=== PATIENT | female | born 1985 | race Caucasian/White ===

== ENCOUNTER 2018-04-15 05:08 | Inpatient (IN) | payer BC ==
[2018-04-15] MEDS ORDERED: Citric Acid/Sodium Citrate Solution 30 ML Cup ONE (05:36)
[2018-04-15] MEDS ORDERED: Metoclopramide 10 MG/2 ML SDV ONE (05:36)
[2018-04-15] MEDS ORDERED: Lactated Ringers 1,000 ML ONE (05:36)
[2018-04-15] MEDS ORDERED: Metoclopramide 10 MG/2 ML SDV IVPUSH ONE (05:37)
[2018-04-15] MEDS ORDERED: Sodium Chloride 0.9% 10 ML Syringe FLUSH PRN (05:37)
[2018-04-15] MEDS ORDERED: Citric Acid/Sodium Citrate Solution 30 ML Cup PO ONE (05:37)
[2018-04-15] MEDS ORDERED: ceFAZolin 2 GM in Premix Bag 1 BAG IV ONE (05:37)
[2018-04-15] MEDS ORDERED: Lactated Ringers 1,000 ML IV SCH (05:45)
[2018-04-15] MEDS ORDERED: Bupivacaine 0.75%/D5W 2 ML Amp ONE (05:55)
[2018-04-15] MEDS ORDERED: Ondansetron 4 MG/2 ML SDV ONE (05:55)
[2018-04-15] MEDS ORDERED: Oxytocin 10 Units/1 ML SDV ONE (05:55)
--- NOTE | 2018-04-15 05:55 | PCM.LDHP ---
L&D History of Present Illness - General Date of Service: 04/15/18 Admit Problem/Dx: Patient Status Order with Admit Dx/Problem 04/15/18 05:37 Patient Status [ADT] Routine Admission Diagnosis/Problem Admission Diagnosis/Problem complications Source of Information: Patient History Limitations: Reports: No Limitations - History of Present Illness Introduction:: Admission history and physical: Sulema is a 32-year-old 3 para 0111 white female was admitted on the a.m. of 04/15/2018 with reported rupture membranes. This occurred approximately 0400 hrs. She's had continued mild leakage since that time with some green staining on her pad. Valuation in labor delivery shows baby to be in a breech presentation by ultrasound and clinical exam. It appears to be kim breech. Membranes appear to be ruptured, amnio sure is done but there is no evidence of membranes and patient is 5 cm, 95% effaced, -2 station, very soft and anterior. Discussion is held with patient as to attempt at vaginal after section versus repeat section. The benefits risks and alternatives of care discussed in detail. She appears to understand and wishes to proceed with section. [employer] history 3 para 0111 with last baby delivery at 27 weeks gestational age after rupture membranes. He is also had a miscarriage on 2014 at 8 weeks gestational age. Her present is dated by a certain last menstrual periods started on 07/28/2017 is supported by an ultrasound done on 10/10/2017 and 09/12/2017. He is 05/04/[address] place her at 37-2/7 weeks gestational age. Her has been relatively unremarkable. She is a centering patient. She declines flu vaccination. She declined the T dap immunization. Her [place] depression screening score on was 0 on a scale of 30. She is group B strep negative. She declined genetic evaluation. She is Rh- with O- blood. She did have RhoGAM at 28 weeks been administered on 10/14/2017. Betamethasone after 24 weeks 2 doses. Previous C- section was confirmed via low transverse incision. He plans to breast-feed. Her first visit was at 10-4/7 weeks gestational age. At that time weight was 153. Went up to 191 for a 4038 pound weight gain. Her vital signs remained stable throughout os to the course but increased to borderline elevated towards in the . Fundal height growth has been appropriate. Baby was felt to be breech at her last visit. Patient had menarche at age 13. Cycles every 28 days and regular. Her definite last menstrual period started on 07/28/2017 and patient was not using any control to time conception. Laboratory testing in : Blood is O- with negative MRI screening. First labs showed hemoglobin 14.5 g/dL and platelets 200,000. She is rubella immune. RPR was nonreactive. Hepatitis B surface antigen and HIV assays were both negative. Chlamydia and gonorrhea assays were negative. Second trimester labs showed a hemoglobin of 12.7 and platelets of 163,000. Her 1 hour GTT was elevated at 161. Three-hour glucose tolerance test showed a fasting blood sugar of 83, 1 hour blood sugar of 160, 2 hour blood sugar of 203, three-hour blood sugar of 141. She was determined to not be a gestational diabetic. Antibody screen was positive on 02/06/2018 and was felt to be due to the previous give RhoGAM. Her group B strep screen is negative. Allergies: None Medications: 1. vitamins daily 2. Folic acid 1 mg orally daily Past medical history: 1. Miscarriage past surgical history: 2016 for labor at 27 weeks 2. Ear tubes as a child. Family history: Mother and father are alive and well. On brother and 1 sister alive and well. All grandparents are . Paternal grandfather secondary to Guillain-Nieves disease. Maternal grandmother secondary to breast cancer, Luke's disease. Paternal grandfather from some type of metabolic problem. Paternal grandmother secondary lung cancer. There are no bleeding, clotting, anesthesia or -related problems noted in the family otherwise. Social history: Patient is . She lives in [place] with her Dejuan. She does not use any significant most alcohol, drugs or tobacco. Review of systems: Baby has been active. Some contractions are noted. An: Negative Cardiovascular: No chest pain or exercise intolerance Respiratory: No infectious symptoms or shortness of breath Breasts: Changes associated with . Patient does plan to breast-feed. GI: Negative : Changes and cervix as above. Findings consistent with spontaneous rupture membranes, breech presentation in a 37-2/7 week Musculoskeletal: Negative Neurological: Negative Physical exam: In general patient is well-developed well-nourished pleasant female stated age in no acute distress. Blood pressure on last evaluation clinic was 136/92. Weight was 191. heart rate is 153. Her pregravid weight was 153. Pregravid body mass index is 24.7 and height is 5 feet 6 inches. In general patient is well-developed, well-nourished, pleasant female stated age in no acute distress. Skin is warm dry without lesions. HEENT, neck and back within normal limits Lungs are clear with good breath sounds in all lung perez. Cardiovascular exam shows regular rate and rhythm without murmurs. Breast exam is deferred having been done first visit found to be normal. Abdomen is protuberant with this with last fundal height in clinic at 37 cm. Baby is felt to be in a breech presentation last clinic evaluation. Cervix as described above Extremities show no significant edema. Neurological exam grossly within normal limits. - Related Data Allergies/Adverse Reactions: Allergies Allergy/AdvReac Type Severity Reaction Status Date / Time No Known Allergies Allergy Verified 05/29/15 15:27 Home Medications: Home Meds Folic Acid 800 mg PO DAILY 05/29/15 [History] Acetaminophen/oxyCODONE [Percocet 325-5 MG] 2 tab PO Q4H PRN #30 tablet [Rx] Ibuprofen [Motrin] 600 mg PO Q4H PRN #30 tablet 01/04/16 [Rx] Vit W-Ca,Fe,FA(<1 mg) [ Vitamins] 1 each PO DAILY #100 tablet 01/04/16 [Rx] Past Medical History [employer] History: Reports: , Spontaneous H&P Review of Systems - Review of Systems: Review Of Systems: See Below L&D Exam - Exam Exam: See Below Problem List Initiated/Reviewed/Updated: Yes Orders Last 24hrs: Active Orders 24 hr Category Date Time Status Patient Status [ADT] Routine ADT 04/15/18 05:37 Ordered Communication Order [RC] ROUTINE Care 04/15/18 05:37 Ordered Heart Tones [RC] PER UNIT ROUTINE Care 04/15/18 05:37 Ordered Non Stress Test [RC] PER UNIT ROUTINE Care 04/15/18 05:37 Ordered Peripheral IV Care [RC] . DIRECTED Care 04/15/18 05:39 Ordered Procedure Site Prep Instruct [RC] ASDIRECTED Care 04/15/18 05:37 Ordered Verify Patient Consent Obtain [RC] PER UNIT ROUTINE Care 04/15/18 05:37 Ordered Vital Signs [RC] PFP Care 04/15/18 05:37 Ordered Nothing Per Oral Diet [DIET] Diet 04/15/18 Breakfast Ordered CBC W/O DIFF,HEMOGRAM [HEME] Stat Lab 04/15/18 05:37 Ordered RAPID PLASMA REAGIN,RPR [CHEM] Stat Lab 04/15/18 05:37 Ordered TYPE AND SCREEN [BBK] Routine Lab 04/15/18 05:37 Ordered Citric Acid/Sodium Citrate [Bicitra Solution] Med 04/15/18 05:37 Once 30 ml PO ONETIME ONE Lactated Ringers @ 125 MLS/HR(1000ml) Med 04/15/18 05:45 Ordered Lactated Ringers [Ringers, Lactated] 1,000 ml IV ASDIRECTED Metoclopramide [Reglan] Med 04/15/18 05:37 Once 10 mg IVPUSH ONETIME ONE Sodium Chloride 0.9% [Saline Flush] Med 04/15/18 05:37 Ordered 10 ml FLUSH ASDIRECTED PRN ceFAZolin [Ancef] 2 gm Med 04/15/18 05:37 Ordered Premix Bag 1 bag IV ONETIME Peripheral IV Insertion Adult [OM.PC] Routine Oth 04/15/18 05:37 Ordered Schedule Procedure [COMM] Per Unit Routine Oth 04/15/18 05:37 Ordered Resuscitation Status Routine Resus Stat 04/15/18 05:37 Ordered Assessment/Plan Comment:: 1. 37-2/7 week intrauterine , spontaneous rupture membranes, kim breech presentation, active labor, advanced cervical dilation of 5 cm, history of previous section with desire for trial labor after section for vaginal after section. 2.Reassuring heart tones. 3. Rubella immune 4. Group B strep screen negative 5. Patient plans to breast-feed. Plan: 1. Repeat lower uterine segment transverse section through Dre skin incision under spinal block. Procedure, risks, benefits, alternatives of care including attempt at vaginal breech delivery all discussed with patient. She appears understand and wishes to proceed with . Consent is signed. 2. DVT prophylaxis with SCDs 3. Ancef 2 g IV preop for infection prophylaxis 4. CBC and type and screen preoperatively 5. Reglan and Bicitra preoperatively per protocol
[2018-04-15] MEDS ORDERED: ceFAZolin 1 GM Vial ONE (05:57)
[2018-04-15] MEDS ORDERED: Morphine PF 10 MG/10 ML SDV ONE (05:59)
[2018-04-15] MEDS ORDERED: Bupivacaine 0.5% 30 ML SDV ONE (06:06)
--- NOTE | 2018-04-15 06:18 | PCM.PREANE ---
Preanesthetic Assessment - Procedure Proposed Procedure: Urgent C Section - Anesthesia/Transfusion/Family Hx Anesthesia History: Prior Anesthesia Without Reaction Family History of Anesthesia Reaction: No Transfusion History: No Prior Transfusion(s) - Review of Systems General: No Symptoms Pulmonary: No Symptoms Cardiovascular: No Symptoms Gastrointestinal: No Symptoms Neurological: No Symptoms Other: Reports: None - Physical Assessment NPO Status Date: 04/14/18 NPO Status Time: 22:30 Pulse: 92 O2 Sat by Pulse Oximetry: 100 Respiratory Rate: 20 Blood Pressure: 130/90 Temperature: 37.2 C Weight: 86.636 kg ASA Class: 2E Mental Status: Alert & Oriented x3 Airway Class: Mallampati = 1 Dentition: Reports: Normal Dentition Thyro-Mental Finger Breadths: 3 Mouth Opening Finger Breadths: 3 ROM/Head Extension: Full Lungs: Clear to Auscultation, Normal Respiratory Effort Cardiovascular: Regular Rate, Regular Rhythm - Allergies Allergies/Adverse Reactions: Allergies Allergy/AdvReac Type Severity Reaction Status Date / Time No Known Allergies Allergy Verified 05/29/15 15:27 - Blood Blood Available: No Product(s) Available: None - Anesthesia Plan Pre-Op Medication Ordered: None - Acknowledgements Anesthesia Type Planned: Spinal Pt an Appropriate Candidate for the Planned Anesthesia: Yes Alternatives and Risks of Anesthesia Discussed w Pt/Guardian: Yes Pt/Guardian Understands and Agrees with Anesthesia Plan: Yes PreAnesthesia Questionnaire SECY History: Reports: , Spontaneous - HOME MEDS Home Medications: Home Meds Folic Acid 800 mg PO DAILY 05/29/15 [History] Acetaminophen/oxyCODONE [Percocet 325-5 MG] 2 tab PO Q4H PRN #30 tablet [Rx] Ibuprofen [Motrin] 600 mg PO Q4H PRN #30 tablet 01/04/16 [Rx] Vit W-Ca,Fe,FA(<1 mg) [ Vitamins] 1 each PO DAILY #100 tablet 01/04/16 [Rx] - CURRENT (IN HOUSE) MEDS Current Meds: Current Medications Lactated Ringer's (Ringers, Lactated) 1,000 mls @ 125 mls/hr IV ASDIRECTED JAVY Last Admin: 04/15/18 05:45 Dose: 125 mls/hr Sodium Chloride (Saline Flush) 10 ml FLUSH ASDIRECTED PRN PRN Reason: Keep Vein Open Discontinued Medications Bupivacaine HCl (Marcaine 0.5%) Confirm Administered Dose 30 ml .ROUTE .STK-MED ONE Stop: 04/15/18 06:07 Bupivacaine HCl/Dextrose (Marcaine 0.75% Spinal) Confirm Administered Dose 2 ml .ROUTE .STK-MED ONE Stop: 04/15/18 05:56 Cefazolin Sodium (Ancef) Confirm Administered Dose 2 gm .ROUTE .STK-MED ONE Stop: 04/15/18 05:58 Citric Acid/Sodium Citrate (Bicitra Solution) Confirm Administered Dose 30 ml .ROUTE .STK-MED ONE Stop: 04/15/18 05:37 Citric Acid/Sodium Citrate (Bicitra Solution) 30 ml PO ONETIME ONE Stop: 04/15/18 05:38 Lactated Ringer's (Ringers, Lactated) Confirm Administered Dose 1,000 mls @ as directed .ROUTE .STK-MED ONE Stop: 04/15/18 05:37 Cefazolin Sodium/Dextrose 2 gm (/ Premix) 50 mls @ 100 mls/hr IV ONETIME ONE Stop: 04/15/18 06:06 Metoclopramide HCl (Reglan) Confirm Administered Dose 10 mg .ROUTE .STK-MED ONE Stop: 04/15/18 05:37 Metoclopramide HCl (Reglan) 10 mg IVPUSH ONETIME ONE Stop: 04/15/18 05:38 Morphine Sulfate (Duramorph Pf) Confirm Administered Dose 10 mg .ROUTE .STK-MED ONE Stop: 04/15/18 06:00 Ondansetron HCl (Zofran) Confirm Administered Dose 4 mg .ROUTE .STK-MED ONE Stop: 04/15/18 05:56 Oxytocin (Pitocin) Confirm Administered Dose 20 unit .ROUTE .STK-MED ONE Stop: 04/15/18 05:56
[2018-04-15] MEDS ORDERED: Meperidine PF 50 MG/ML Syringe ONE (06:58)
[2018-04-15] MEDS ORDERED: Ketorolac 30 MG/ML SDV ONE (07:09)
--- NOTE | 2018-04-15 07:29 | PCM.POSTAN ---
POST ANESTHESIA ASSESSMENT - MENTAL STATUS Mental Status: Alert, Oriented - VITAL SIGNS Pulse Rate: 71 SaO2: 97 Resp Rate: 9 Blood Pressure: 95/57 Temperature: 37.0 C - RESPIRATORY Respiratory Status: Respiratory Rate WNL, Airway Patent, O2 Saturation Stable, Supplemental Oxygen - CARDIOVASCULAR CV Status: Pulse Rate WNL, Blood Pressure Stable - GASTROINTESTINAL GI Status: No Symptoms - PAIN Pain Score: 0 - POST OP HYDRATION Hydration Status: Adequate & Stable
[2018-04-15] MEDS ORDERED: fentaNYL 100 MCG/2 ML SDV IVPUSH PRN (07:30)
[2018-04-15] MEDS ORDERED: diphenhydrAMINE 50 MG/ML SDV IVPUSH PRN ×2 (07:30→09:30)
[2018-04-15] MEDS ORDERED: Ondansetron 4 MG/2 ML SDV IVPUSH PRN (07:30)
[2018-04-15] MEDS ORDERED: Meperidine PF 50 MG/ML Syringe IVPUSH PRN (07:30)
--- NOTE | 2018-04-15 07:32 | PCM.OPNOTE ---
- General Post-Op/Procedure Note Date of Surgery/Procedure: 04/15/18 Operative Procedure(s): Repeat lower uterine segment transverse section through Pfannenstiel skin incision Findings: Uterus tubes and ovaries were consistent with term . Small fibroids present on the anterior surface of the uterus. All organs within normal limits. Baby is in a kim breech presentation with sacrum posterior. The amniotic fluid was clear but there was some terminal meconium. Cervix is found to be consistent with 5-6 cm dilation. Moderate amount scarring present in the abdominal wall. Baby was female, weighed 7 pounds 7 ounces, was born at 0654 hrs. on 04/15/2018 and had Apgars of 9 and 10. Pre Op Diagnosis: 37-2/7 week intrauterine , spontaneous rupture membranes, kim breech presentation, active labor, advanced cervical dilation of 5 cm, history of previous section. Post-Op Diagnosis: Same with delivery of a 7 lbs. 7 oz. female with Apgars 9 and 10 at 0654 hrs. on 04/15/2018 Anesthesia Technique: Spinal Other Anesthesia Type: Marcaine 0.5%20 mL local Primary Surgeon: Tony Tate Secondary Surgeon: Dg Pa Anesthesia Provider: Jam Smith Product Delivery Specialist: Dori Piña Reason Product Delivery Specialist Was Necessary: Retraction, assistance, patient safety, quality of care Role of Product Delivery Specialist: Retraction, assistance. Fluid Replacement, Intraop: 1,000 Output, Urine Amount: 600 EBL in mLs: 250 Drain/Tube Comments:: Indwelling bladder catheter Complications: None Condition: Good Free Text/Narrative:: Surgery duration: 27 minutes Surgery duration: Procedure: The patient is appropriately consented. Patient was transferred to the room and placed in a sitting position. Spinal anesthesia was administered. After confirmation of adequate anesthesia patient was placed in a supine position with a wedge under her right side to facilitate left lateral positioning. The patient was prepped and draped in usual fashion after Guajardo catheter was already placed . The anesthetic was checked and found to be adequate. 20 mL of Marcaine 0.5% was injected locally in the Pfannenstiel incision site. The Pfannenstiel skin incision was then made and the old scar was effectively removed. It was carried down through skin, subcutaneous and fascial layers. The fascia was then undermined superiorly and inferiorly to allow for adequate operating room. The recti muscles midline and preperitoneal fat was bluntly dissected. Peritoneal cavity was entered longitudinally. The vesicouterine peritoneum was then incised transversely and bladder flap was developed. Myometrium was incised transversely to the level of the amniotic sac. This incision was extended bilaterally in a blunt fashion. The amniotic sac was then ruptured resulting in clear amniotic fluid. A hand is placed in the low uterine segment and the baby's breech was brought forth through the incision. The baby was completely delivered using fundal pressure and complete breech extraction technique in a routine fashion. The nose and mouth were bulb suctioned. Baby's cord was clamped x2 cut and baby was handed off to attending battery hand Dr Lanza. Placenta was expressed after cord blood was obtained. Uterus was then exteriorized to allow for easier closure. The cervix was assessed and found to be dilated adequately to allow egress of blood. The uterus was closed in 2 layers. The first layer a running locked suture of 0 Monocryl, the second layer a running locked vertical mattress suture of 0 Monocryl. Hemostasis confirmed at this time. Sponge instrument needle counts are correct. The uterus was returned to the abdominal cavity and lateral gutters were cleared of blood. Once again sponge needle counts are correct. The anterior abdominal wall was closed with a #1 PDS suture from angle to angle. The subcutaneous area was found to be free of any bleeders. 3 interrupted sutures of 3-0 Monocryl were used to reapproximate the subcutaneous layer.Skin was closed with a running subcuticular stitch of 3-0 Monocryl in a vertical mattress suture fashion using a Garrick needle. Prineo mesh/glue was then applied to further approximate the incision. It should be noted that patient received 2 g of Ancef preoperatively for infection prophylaxis and had Pitocin infused after delivery of the placenta to facilitate uterine contraction. She also had sequential compression stockings in place for DVT prophylaxis. Patient was discharged from the operating room in satisfactory condition.
[2018-04-15] MEDS ORDERED: Acetaminophen/oxyCODONE 325-5 MG Tab PO PRN (09:30)
[2018-04-15] MEDS ORDERED: Ibuprofen 800 MG Tab PO SCH (09:30)
[2018-04-15] MEDS ORDERED: Dextrose 5%-Lactated Ringers 1,000 ML IV SCH (09:30)
[2018-04-15] MEDS ORDERED: Ondansetron 4 MG/2 ML SDV IV PRN (09:30)
[2018-04-15] MEDS ORDERED: Lanolin 100% Cream 7 GM Tube TOP PRN (09:30)
[2018-04-15] MEDS ORDERED: ePHEDrine 50 MG/ML SDV IVPUSH PRN (09:30)
[2018-04-15] MEDS ORDERED: Docusate Sodium 100 MG Cap PO PRN (09:30)
[2018-04-15] MEDS ORDERED: Naloxone 0.4 MG/ML SDV IVPUSH PRN (09:30)
[2018-04-15] MEDS: Simethicone 80 MG Tab.Chew PO SCH ×4 (14:44→21:49)
[2018-04-15] MEDS: Ibuprofen 800 MG Tab PO SCH ×2 (14:44→21:48)
[2018-04-15] MEDS: Prenatal Multivitamin with Calcium/Folic Acid/Iron Tab PO SCH (18:23)
[2018-04-16] MEDS: Ibuprofen 800 MG Tab PO SCH ×3 (05:21→23:26)
--- NOTE | 2018-04-16 07:39 | PCM48HPAN ---
Post Anesthesia Note - EVALUATION WITHIN 48HRS OF ANESTHETIC Vital Signs in Normal Range: Yes Patient Participated in Evaluation: Yes Respiratory Function Stable: Yes Airway Patent: Yes Cardiovascular Function Stable: Yes Hydration Status Stable: Yes Pain Control Satisfactory: Yes Nausea and Vomiting Control Satisfactory: Yes Mental Status Recovered: Yes Pulse Rate: 75 Resp Rate: 16 Temperature: 36.6 C Blood Pressure: 107/63 - COMMENTS/OBSERVATIONS Free Text/Narrative:: no anesthesia complications noted
--- NOTE | 2018-04-16 09:12 | PCM.SN ---
- Free Text/Narrative Note: note: Patient is doing well in the period. Minimal lochia, voiding well, ambulated without problems. Nursing without concerns. Patient is afebrile, vital signs are stable Lungs are clear with good breath sounds in all lung perez. Cardiovascular exam shows regular and rhythm Abdomen is flat, soft, uterus is below the umbilicus and is firm and nontender. Incision is dry, intact and without evidence of hematoma, seroma or infection. Prineo Mesh is in place Legs are nontender. Hemoglobin and platelets are normal for the period Assessment: -first post day, recovery going well. Nursing going well. Plan: Routine postop care. Patient be discharged home within the next 24-48 hours.
[2018-04-16] MEDS: Prenatal Multivitamin with Calcium/Folic Acid/Iron Tab PO SCH (10:00)
[2018-04-16] MEDS: Simethicone 80 MG Tab.Chew PO SCH ×4 (15:00→23:25)
[2018-04-17] MEDS: Ibuprofen 800 MG Tab PO SCH (06:59)
[2018-04-17] MEDS ORDERED: Ibuprofen 800 MG Tab PO SCH (08:00)
[2018-04-17] MEDS: Simethicone 80 MG Tab.Chew PO SCH (08:20)
[2018-04-17] MEDS: Prenatal Multivitamin with Calcium/Folic Acid/Iron Tab PO SCH (08:20)
[2018-04-17 11:12] VITALS: BP 127/89
--- NOTE | 2018-04-17 11:17 | PCM.DCSUM1 ---
Discharge Summary - Hospital Course Free Text/Narrative:: Sulema is a 32-year-old 2 now para [birth year] white female was admitted in active labor admitted at 37-2/7 weeks gestational age having an JASMYNE of 2017. with advanced cervical dilation and a kim breech presentation. He was taken to surgery shortly after admission. She underwent a repeat section. Surgery consisted of a repeat lower uterine segment transverse section through Pfannenstiel skin incision Findings included: Uterus tubes and ovaries were consistent with term . Small fibroids present on the anterior surface of the uterus. All organs within normal limits. Baby is in a kim breech presentation with sacrum posterior. The amniotic fluid was clear but there was some terminal meconium. Cervix is found to be consistent with 5-6 cm dilation. Moderate amount scarring present in the abdominal wall. Baby was female, weighed 7 pounds 7 ounces, was born at 0654 hrs. on 04/15/2018 and had Apgars of 9 and 10. Postop patient is doing well. Vital signs and stable. She's been afebrile. She is nursing without problems. She is made normal recovery and desires discharge home today. Follow-up CBC is within normal limits for the postoperative period Diagnosis: Stroke: No - Discharge Data Discharge Date: 04/17/18 Discharge Disposition: Home, Self-Care 01 Condition: Good - Patient Summary/Data Operative Procedure(s) Performed: Repeat lower uterine segment transverse section through Pfannenstiel skin incision - Patient Instructions Diet: Regular Diet as Tolerated (Nursing diet and increase calories and calcium is recommended) Activity: As Tolerated (No intercourse or tampons until seen back. No lifting greater than 15 pounds or driving a car 1 week) Driving: Do Not Drive Showering/Bathing: May Shower Wound/Incision Care: Keep Operative Site/Wound Site Clean and Dry Notify Provider of: Fever, Increased Pain, Swelling and Redness, Drainage, Nausea and/or Vomiting - Discharge Plan *PRESCRIPTION DRUG MONITORING PROGRAM REVIEWED*: No *COPY OF PRESCRIPTION DRUG MONITORING REPORT IN PATIENT DERRICK: No Home Medications: Home Meds Folic Acid 800 mg PO DAILY 05/29/15 [History] Acetaminophen/oxyCODONE [Percocet 325-5 MG] 2 tab PO Q4H PRN #30 tablet [Rx] Ibuprofen [Motrin] 600 mg PO Q4H PRN #30 tablet 01/04/16 [Rx] Vit W-Ca,Fe,FA(<1 mg) [ Vitamins] 1 each PO DAILY #100 tablet 01/04/16 [Rx] Acetaminophen/oxyCODONE [Percocet 325-5 MG] 2 tab PO Q4H PRN #20 tablet [Rx] Ibuprofen [Motrin] 600 mg PO Q4H PRN #30 tablet 04/17/18 [Rx] Patient Handouts: Home Care Instructions for Mom Referrals: Tony Tate MD [Primary Care Provider] - (Return to clinicDr. Tate2 weeks.) - Discharge Summary/Plan Comment DC Time >30 min.: No Discharge Summary/Plan Comment: Discharge instructions: 1. Discharge home 2. Diet, activity and follow-up discussed with patient. Recommend nursing diet with increased calories and calcium. 3. Precautions given concern increased pain, bleeding, temperature, signs/ symptoms of DVT/PE. 4. Medications per home medication was printed, discussed with and given to the patient. 5. Return to clinic-Dr. Tate-[facility] in 2 weeks. Diagnosis: Term , breech presentation, history of previous section, delivered by repeat section Condition: Good - Patient Data Vitals - Most Recent: Last Vital Signs Temp 37.1 C 04/17/18 08:26 Pulse 75 04/17/18 08:26 Resp 16 04/17/18 08:26 BP 127/89 04/17/18 08:26 Pulse Ox 99 04/17/18 08:26 Weight - Most Recent: 86.636 kg I&O - Last 24 hours: Intake & Output 04/16/18 04/17/18 04/17/18 22:59 06:59 14:59 Intake Total 0 Output Total 1000 Balance -1000 Lab Results - Last 24 hrs: Laboratory Results - last 24 hr 04/15/18 Range/Units 06:00 Antibody Identification Anti-D Med Orders - Current: Current Medications Diphenhydramine HCl (Benadryl) 25 mg IVPUSH Q6H PRN PRN Reason: Pruritis Diphenhydramine HCl (Benadryl) 25 mg IVPUSH Q6H PRN PRN Reason: Itching or Nausea Docusate Sodium (Colace) 100 mg PO Q12H PRN PRN Reason: Constipation Emollient Ointment (Lansinoh Hpa) 0 gm TOP ASDIRECTED PRN PRN Reason: Sore Nipples Ephedrine Sulfate (Ephedrine Sulfate) 5 mg IVPUSH SEECOMMENT PRN PRN Reason: Other Fentanyl (Sublimaze) 50 mcg IVPUSH Q5M PRN PRN Reason: Pain Ibuprofen (Motrin) 800 mg PO Q8H [facility] Last Admin: 04/17/18 08:21 Dose: 800 mg Meperidine HCl (Demerol) 12.5 mg IVPUSH ONETIME PRN PRN Reason: Shivering Naloxone HCl (Narcan) 0.1 mg IVPUSH SEECOMMENT PRN PRN Reason: Respiratory Depression Ondansetron HCl (Zofran) 4 mg IVPUSH ONETIME PRN PRN Reason: Nausea/Vomiting Ondansetron HCl (Zofran) 4 mg IV Q8H PRN PRN Reason: Nausea/Vomiting Oxycodone/Acetaminophen (Percocet 325-5 Mg) 2 tab PO Q4H PRN PRN Reason: Pain (moderate 4-6) Prenat Multivit/[place]/Iron/Folic Ac ( Plus Iron) 1 each PO DAILY [facility] Last Admin: 04/17/18 08:20 Dose: 1 each Simethicone (Simethicone) 80 mg PO PCBED [facility] Last Admin: 04/17/18 08:20 Dose: 80 mg Discontinued Medications Bupivacaine HCl (Marcaine 0.5%) Confirm Administered Dose 30 ml .ROUTE .STK-MED ONE Stop: 04/15/18 06:07 Last Admin: 04/15/18 06:49 Dose: 20 ml Bupivacaine HCl/Dextrose (Marcaine 0.75% Spinal) Confirm Administered Dose 2 ml .ROUTE .STK-MED ONE Stop: 04/15/18 05:56 Cefazolin Sodium (Ancef) Confirm Administered Dose 2 gm .ROUTE .STK-MED ONE Stop: 04/15/18 05:58 Citric Acid/Sodium Citrate (Bicitra Solution) Confirm Administered Dose 30 ml .ROUTE .STK-MED ONE Stop: 04/15/18 05:37 Last Admin: 04/15/18 11:29 Dose: Not Given Citric Acid/Sodium Citrate (Bicitra Solution) 30 ml PO ONETIME ONE Stop: 04/15/18 05:38 Last Admin: 04/15/18 06:16 Dose: 30 ml Lactated Ringer's (Ringers, Lactated) Confirm Administered Dose 1,000 mls @ as directed .ROUTE .STK-MED ONE Stop: 04/15/18 05:37 Last Admin: 04/15/18 11:29 Dose: Not Given Cefazolin Sodium/Dextrose 2 gm (/ Premix) 50 mls @ 100 mls/hr IV ONETIME ONE Stop: 04/15/18 06:06 Last Admin: 04/15/18 11:29 Dose: Not Given Lactated Ringer's (Ringers, Lactated) 1,000 mls @ 125 mls/hr IV ASDIRECTED [facility] Last Admin: 04/15/18 05:45 Dose: 125 mls/hr Dextrose/Lactated Ringer's (Dextrose 5%-Lactated Ringers) 1,000 mls @ 125 mls/ hr IV ASDIRECTED [facility] Stop: 04/15/18 17:29 Last Admin: 04/15/18 10:07 Dose: 125 mls/hr Ibuprofen (Motrin) 800 mg PO Q8H [facility] Last Admin: 04/15/18 11:29 Dose: Not Given Ibuprofen (Motrin) 800 mg PO Q8H [facility] Last Admin: 04/17/18 06:59 Dose: Not Given Ketorolac Tromethamine (Toradol) Confirm Administered Dose 30 mg .ROUTE .STK- MED ONE Stop: 04/15/18 07:10 Lidocaine HCl (Xylocaine-Mpf 1%) 5 ml .ROUTE .STK-MED ONE Stop: 04/15/18 05:59 Meperidine HCl (Demerol) Confirm Administered Dose 50 mg .ROUTE .STK-MED ONE Stop: 04/15/18 06:59 Metoclopramide HCl (Reglan) Confirm Administered Dose 10 mg .ROUTE .STK-MED ONE Stop: 04/15/18 05:37 Last Admin: 04/15/18 11:29 Dose: Not Given Metoclopramide HCl (Reglan) 10 mg IVPUSH ONETIME ONE Stop: 04/15/18 05:38 Last Admin: 04/15/18 06:16 Dose: 10 mg Morphine Sulfate (Duramorph Pf) Confirm Administered Dose 10 mg .ROUTE .STK-MED ONE Stop: 04/15/18 06:00 Ondansetron HCl (Zofran) Confirm Administered Dose 4 mg .ROUTE .STK-MED ONE Stop: 04/15/18 05:56 Oxytocin (Pitocin) Confirm Administered Dose 20 unit .ROUTE .STK-MED ONE Stop: 04/15/18 05:56 Sodium Chloride (Saline Flush) 10 ml FLUSH ASDIRECTED PRN PRN Reason: Keep Vein Open
== END 2018-04-17 12:10 | disposition home or self-care (01) | DRG 540 ==
LOC: JD.OBCHECK 05:08 → JD.OB 05:12 → JD.OBCHECK 05:37 → OBSVTOIN 06:54
PROVIDERS: ADMIT Obstetrics & Gynecology; ATTEND Obstetrics & Gynecology
PROC: 6A550ZT Pheresis of Cord Blood Stem Cells, Single (ICD-10-PCS; principal; 2018-04-15)
PROC: 10D00Z1 Extraction of Products of Conception, Low, Open Approach (ICD-10-PCS; principal; 2018-04-15)
PROC: 3E0234Z Introduction of Serum, Toxoid and Vaccine into Muscle, Percutaneous Approach (ICD-10-PCS; 2018-04-16)
DX: O32.1XX0 Maternal care for breech presentation, not applicable or unspecified (principal); Z3A.37 37 weeks gestation of pregnancy; Z37.0 Single live birth; O34.211 Maternal care for low transverse scar from previous cesarean delivery; N85.8 Other specified noninflammatory disorders of uterus; O34.13 Maternal care for benign tumor of corpus uteri, third trimester; D25.9 Leiomyoma of uterus, unspecified; O77.0 Labor and delivery complicated by meconium in amniotic fluid; O26.893 Other specified pregnancy related conditions, third trimester; Z67.41 Type O blood, Rh negative
CPT/HCPCS: 01961; 36415; 59025; 85025; 85027; 85461; 86592; 86850; 86870; 86900; 86901; 94762; A9270-GY; J0690; J1885; J2175; J2270; J2405; J2590; J2765; J2790; J3490; J7042; J7120

== ENCOUNTER 2019-10-03 14:05 | Day surgery (SDC) | payer BC ==
--- NOTE | 2019-10-03 14:43 | EDM.PDOC ---
ED HPI GENERAL MEDICAL PROBLEM - General Chief Complaint: Abdominal Pain Stated Complaint: ABDOMINAL PAIN Time Seen by Provider: 10/03/19 14:18 Source of Information: Reports: Patient History Limitations: Reports: No Limitations - History of Present Illness INITIAL COMMENTS - FREE TEXT/NARRATIVE: Mrs. Musa is a pleasant 34-year-old woman with no chronic medical issues, who states that she developed lower abdominal pain, crampy in character, around midnight, but that it has been getting worse. She did vomit around 03:00, and has vomited numerous times since. No diarrhea. No recent fever, and she is afebrile here in the ED, although she has felt both hot and cold. No urinary symptoms. No flank pain. No prior similar symptoms. The patient states that she started her menstrual period 2 days ago, , . The patient states that she last ate a small amount of cracker around noon, but that she subsequently vomited. The patient does not have a PCP. Her [employer] G[employer] ATTENDANT is Dr. Tony Tate. The patient states that is not received any vaccinations since elementary school. No influenza vaccine this season, and she declined an offer for one here today. Abdominal Pain Score (Numeric/FACES): 6 - Related Data Allergies Allergy/AdvReac Type Severity Reaction Status Date / Time No Known Allergies Allergy Verified 10/03/19 14:16 Home Meds: Home Meds Supplements. 10/03/19 [History] Past Medical History [employer] ATTENDANT History: Reports: , Spontaneous - Past Surgical History HEENT Surgical History: Reports: Myringotomy w Tube(s) (bilateral), Oral Surgery (wisdom teeth extraction) Female Surgical History: Reports: Section (x 2) Social & Family History - Family History Family Medical History: Noncontributory - Tobacco Use Smoking Status *Q: Never Smoker - Alcohol Use Alcohol Use History: No - Recreational Drug Use Recreational Drug Use: No - Living Situation & Occupation Living situation: Reports: , with Spouse, with Family (2 kids) Occupation: Unemployed ED ROS GENERAL - Review of Systems Review Of Systems: Comprehensive ROS is negative, except as noted in HPI. ED EXAM, GI/ABD - Physical Exam Exam: See Below Exam Limited By: No Limitations General Appearance: Alert, WD/WN, No Apparent Distress Eyes: Bilateral: Normal Appearance, EOMI Ears: Normal External Exam, Hearing Grossly Normal Nose: Normal Inspection Throat/Mouth: Normal Inspection, Normal Lips, Normal Voice, No Airway Compromise Head: Atraumatic, Normocephalic Neck: Normal Inspection, Full Range of Motion Respiratory/Chest: No Respiratory Distress, Lungs Clear, Normal Breath Sounds, No Accessory Muscle Use Cardiovascular: Normal Peripheral Pulses, Regular Rate, Rhythm, No Edema, No Gallop, No JVD, No Murmur, No Rub GI/Abdominal Exam: Soft, No Organomegaly, No Distention, No Abnormal Bruit, No Mass, Tender (Across the entire lower abdomen, with the greatest tenderness in the left lower quadrant. Essentially nontender to the upper half of the abdomen , although palpation MAY induce some lower abdominal pain.), Abnormal Bowel Sounds (decreased) (Female) Exam: Deferred Rectal (Female) Exam: Deferred Back Exam: Normal Inspection, Full Range of Motion. No: CVA Tenderness (L), CVA Tenderness (R) Extremities: Normal Inspection, Normal Range of Motion, No Pedal Edema, Normal Capillary Refill Neurological: Alert, Oriented, Normal Cognition, No Motor/Sensory Deficits Psychiatric: Normal Affect Skin Exam: Warm, Dry, Intact, Normal Color, No Rash Course - Vital Signs Last Recorded V/S: Last Vital Signs Temp 36.2 C 10/03/19 14:17 Pulse 77 10/03/19 14:17 Resp 16 10/03/19 14:17 BP 120/81 10/03/19 14:17 Pulse Ox 100 10/03/19 14:17 - Orders/Labs/Meds Orders: Active Orders 24 hr Category Date Time Status Patient Status [ADT] Routine ADT 10/03/19 18:08 Active Urinary Catheter Assessment [RC] ASDIRECTED Care 10/03/19 15:53 Active Urinary Catheter Insertion [Insert Urinary Catheter] [ Care 10/03/19 16:00 Ordered OM.PC] Q24H Lactated Ringers [Ringers, Lactated] 1,000 ml Med 10/03/19 17:45 Active IV ASDIRECTED Piperacillin/Tazobactam [Piperacil-Tazobact] 4.5 gm Med 10/03/19 17:36 Active Sodium Chloride 0.9% [Normal Saline] 100 ml IV ONETIME Sodium Chloride 0.9% [Normal Saline] 1,000 ml Med 10/03/19 14:45 Active IV ASDIRECTED Schedule Procedure [COMM] Routine Oth 10/03/19 18:06 Ordered Medication Orders Sodium Chloride (Normal Saline) 1,000 mls @ 150 mls/hr IV ASDIRECTED JAVY Last Admin: 10/03/19 15:22 Dose: 150 mls/hr Piperacillin Sod/Tazobactam (Sod 4.5 gm/ Sodium Chloride) 100 mls @ 25 mls/hr IV ONETIME STA Stop: 10/03/19 21:35 Last Admin: 10/03/19 17:54 Dose: 25 mls/hr Lactated Ringer's (Ringers, Lactated) 1,000 mls @ 100 mls/hr IV ASDIRECTED JAVY Last Admin: 10/03/19 17:54 Dose: 100 mls/hr Labs: Laboratory Tests 10/03/19 10/03/19 10/03/19 Range/Units 15:11 15:11 15:46 WBC 10.55 H (3.98-10.04) K/mm3 RBC 5.63 H (3.98-5.22) M/mm3 Hgb 16.0 H (11.2-15.7) gm/dl Hct 46.4 H (34.1-44.9) % MCV 82.4 (79.4-94.8) fl MCH 28.4 (25.6-32.2) pg MCHC 34.5 (32.2-35.5) g/dl RDW Std Deviation 39.4 (36.4-46.3) fL Plt Count 249 (182-369) K/mm3 MPV 9.7 (9.4-12.3) fl Neutrophils % (Manual) 91 H (40-60) % Band Neutrophils % 0 (0-10) % Lymphocytes % (Manual) 8 L (20-40) % Atypical Lymphs % 0 % Monocytes % (Manual) 1 L (2-10) % Eosinophils % (Manual) 0 L (0.7-5.8) % Basophils % (Manual) 0 L (0.1-1.2) Platelet Estimate Adequate Plt Morphology Comment Normal RBC Morph Comment Normal Sodium 139 (136-145) mEq/L Potassium 3.4 L (3.5-5.1) mEq/L Chloride 100 (98-107) mEq/L Carbon Dioxide 25 (21-32) mEq/L Anion Gap 17.4 H (5-15) BUN 8 (7-18) mg/dL Creatinine 0.8 (0.55-1.02) mg/dL Est Cr Clr Drug Dosing 90.84 mL/min Estimated GFR (MDRD) > 60 (>60) mL/min BUN/Creatinine Ratio 10.0 L (14-18) Glucose 119 H (74-106) mg/dL Calcium 9.2 (8.5-10.1) mg/dL Total Bilirubin 0.6 (0.2-1.0) mg/dL AST 12 L (15-37) U/L ALT 21 (14-59) U/L Alkaline Phosphatase 57 (46-116) U/L Total Protein 8.1 (6.4-8.2) g/dl Albumin 4.7 (3.4-5.0) g/dl Globulin 3.4 gm/dL Albumin/Globulin Ratio 1.4 (1-2) Urine Color Yellow (Yellow) Urine Appearance Clear (Clear) Urine pH 7.0 (5.0-8.0) Ur Specific [place] 1.025 (1.005-1.030) Urine Protein Trace H (Negative) Urine Glucose (UA) Negative (Negative) Urine Ketones 2+ H (Negative) Urine Occult Blood Negative (Negative) Urine Nitrite Negative (Negative) Urine Bilirubin Negative (Negative) Urine Urobilinogen 0.2 (0.2-1.0) Ur Leukocyte Esterase Negative (Negative) Urine RBC 0-5 (0-5) /hpf Urine WBC Not seen (0-5) /hpf Ur Squamous Epith Cells 0-5 (0-5) /hpf Urine Bacteria Not seen (FEW) /hpf Urine Mucus Few (FEW) /hpf Urine HCG, Qual (NEGATIVE) 10/03/19 Range/Units 15:46 WBC (3.98-10.04) K/mm3 RBC (3.98-5.22) M/mm3 Hgb (11.2-15.7) gm/dl Hct (34.1-44.9) % MCV (79.4-94.8) fl MCH (25.6-32.2) pg MCHC (32.2-35.5) g/dl RDW Std Deviation (36.4-46.3) fL Plt Count (182-369) K/mm3 MPV (9.4-12.3) fl Neutrophils % (Manual) (40-60) % Band Neutrophils % (0-10) % Lymphocytes % (Manual) (20-40) % Atypical Lymphs % % Monocytes % (Manual) (2-10) % Eosinophils % (Manual) (0.7-5.8) % Basophils % (Manual) (0.1-1.2) Platelet Estimate Plt Morphology Comment RBC Morph Comment Sodium (136-145) mEq/L Potassium (3.5-5.1) mEq/L Chloride (98-107) mEq/L Carbon Dioxide (21-32) mEq/L Anion Gap (5-15) BUN (7-18) mg/dL Creatinine (0.55-1.02) mg/dL Est Cr Clr Drug Dosing mL/min Estimated GFR (MDRD) (>60) mL/min BUN/Creatinine Ratio (14-18) Glucose (74-106) mg/dL Calcium (8.5-10.1) mg/dL Total Bilirubin (0.2-1.0) mg/dL AST (15-37) U/L ALT (14-59) U/L Alkaline Phosphatase (46-116) U/L Total Protein (6.4-8.2) g/dl Albumin (3.4-5.0) g/dl Globulin gm/dL Albumin/Globulin Ratio (1-2) Urine Color (Yellow) Urine Appearance (Clear) Urine pH (5.0-8.0) Ur Specific [place] (1.005-1.030) Urine Protein (Negative) Urine Glucose (UA) (Negative) Urine Ketones (Negative) Urine Occult Blood (Negative) Urine Nitrite (Negative) Urine Bilirubin (Negative) Urine Urobilinogen (0.2-1.0) Ur Leukocyte Esterase (Negative) Urine RBC (0-5) /hpf Urine WBC (0-5) /hpf Ur Squamous Epith Cells (0-5) /hpf Urine Bacteria (FEW) /hpf Urine Mucus (FEW) /hpf Urine HCG, Qual Negative (NEGATIVE) Meds: Medications Generic Name Dose Route Start Last Admin Trade Name Freq PRN Reason Stop Dose Admin Sodium Chloride 1,000 mls @ 150 mls/hr 10/03/19 14:45 10/03/19 15:22 Normal Saline IV 150 mls/hr ASDIRECTED JAVY Administration Piperacillin Sod/Tazobactam 100 mls @ 25 mls/hr 10/03/19 17:36 10/03/19 17:54 Sod 4.5 gm/ Sodium Chloride IV 10/03/19 21:35 25 mls/hr ONETIME STA Administration Lactated Ringer's 1,000 mls @ 100 mls/hr 10/03/19 17:45 10/03/19 17:54 Ringers, Lactated IV 100 mls/hr ASDIRECTED JAVY Administration Discontinued Medications Generic Name Dose Route Start Last Admin Trade Name Freq PRN Reason Stop Dose Admin Diatrizoate Meglum/Diatrizoate Sod 90 ml 10/03/19 15:44 10/03/19 16:15 Gastrografin 37% PO 10/03/19 15:45 90 ml ONETIME ONE Administration Hydromorphone HCl 0.5 mg 10/03/19 17:06 10/03/19 17:11 Dilaudid IVPUSH 10/03/19 17:07 0.5 mg ONETIME ONE Administration Iopamidol 100 ml 10/03/19 15:44 10/03/19 16:15 Isovue-300 (61%) IVPUSH 10/03/19 15:45 100 ml ONETIME ONE Administration Ondansetron HCl 4 mg 10/03/19 15:01 10/03/19 15:21 Zofran IVPUSH 10/03/19 15:02 4 mg ONETIME ONE Administration Sodium Chloride 10 ml 10/03/19 16:17 10/03/19 16:18 Saline Flush FLUSH 10 ml ONETIME PRN Administration Keep Vein Open - Re-Assessments/Exams Free Text/Narrative Re-Assessment/Exam: 10/03/19 14:38 The patient has considerable tenderness across her entire lower abdomen, with the greatest tenderness in the left lower quadrant. The differential would include a ruptured ovarian cyst, an unusual presentation of appendicitis, particularly if the anatomic position of the appendix was lying on the left side of the cecum, diverticulitis, colitis, mesenteric appendagitis, and a UTI. Highly unlikely, since the patient has no CVA tenderness, would be a ureterolith. I am recommending a CT scan of her abdomen and pelvis with oral and IV contrast, along with blood work and a analysis collected by quick catheter, since she is on her menstrual period. The patient wanted to talk to her before deciding. I will return to her room in a few minutes. 10/03/19 14:43 The patient has agreed to proceed with my recommended evaluation. She declined an offer for both pain medication and anti-nausea medicine. 10/03/19 15:01 Notified by Teresita MCQUEEN that the patient changed her mind on the anti-nausea medicine. I have ordered 4 mg of IV Zofran. 10/03/19 16:21 The patient's CBC is remarkable for a WBC count mildly elevated at 10.55, but with 0% bandemia and 91% neutrophilia. Her H/H are elevated at 16.0/46.4, with the remainder of her CBC being unremarkable. Her CMP is remarkable for a potassium slightly depressed at 3.4. Her anion gap is mildly elevated at 17.4, but with a bicarbonate normal at 25. Her blood glucose is mildly elevated at 119, with the remainder of her CMP being unremarkable. Her urinalysis is unremarkable. Urine test is negative. Results of the CT scan of the abdomen and pelvis are still pending. 10/03/19 17:06 Notified by Teresita MCQUEEN that the patient requested pain medication. I have ordered Dilaudid 0.5 mg IVP. 10/03/19 17:28 CT of the abdomen and pelvis with oral and IV contrast as read by Dr. Coelho as: 1. Findings as described above which are felt compatible with appendicitis. 2. 2 small liver lesions which are believed to be incidental. 3. No additional abnormality is appreciated on CT study of the abdomen and pelvis. 10/03/19 17:[address] Almaraz at 17:34. He asked that I switch the patient to LR at 100 mL/h, give her 1 dose of IV Zosyn, give her medication for pain, and he will see her here in the ED shortly. Departure - Departure Time of Disposition: 17:40 Disposition: DC/Tfer to Critical Access 66 Condition: Good Clinical Impression: Acute appendicitis - Discharge Information *PRESCRIPTION DRUG MONITORING PROGRAM REVIEWED*: Not Applicable *COPY OF PRESCRIPTION DRUG MONITORING REPORT IN PATIENT DERRICK: Not Applicable Referrals: Tony Tate MD [Physician] - David Almaraz MD [Physician] - Forms: ED Department Discharge Sepsis Event Note - Evaluation Sepsis Screening Result: No Definite Risk - Focused Exam Vital Signs: Vital Signs Temp Pulse Resp BP Pulse Ox 10/03/19 14:17 36.2 C 77 16 120/81 100 Date Exam was Performed: 10/03/19 Time Exam was Performed: 18:10 - My Orders Last 24 Hours: My Active Orders 10/03/19 14:45 Sodium Chloride 0.9% [Normal Saline] 1,000 ml IV ASDIRECTED 10/03/19 15:53 Urinary Catheter Assessment [RC] ASDIRECTED 10/03/19 16:00 Urinary Catheter Insertion [Insert Urinary Catheter] [OM.PC] Q24H 10/03/19 17:36 Piperacillin/Tazobactam [Piperacil-Tazobact] 4.5 gm Sodium Chloride 0.9% [ Normal Saline] 100 ml IV ONETIME 10/03/19 17:45 Lactated Ringers [Ringers, Lactated] 1,000 ml IV ASDIRECTED 10/03/19 18:08 Patient Status [ADT] Routine - Assessment/Plan Last 24 Hours: My Active Orders 10/03/19 14:45 Sodium Chloride 0.9% [Normal Saline] 1,000 ml IV ASDIRECTED 10/03/19 15:53 Urinary Catheter Assessment [RC] ASDIRECTED 10/03/19 16:00 Urinary Catheter Insertion [Insert Urinary Catheter] [OM.PC] Q24H 10/03/19 17:36 Piperacillin/Tazobactam [Piperacil-Tazobact] 4.5 gm Sodium Chloride 0.9% [ Normal Saline] 100 ml IV ONETIME 10/03/19 17:45 Lactated Ringers [Ringers, Lactated] 1,000 ml IV ASDIRECTED 10/03/19 18:08 Patient Status [ADT] Routine
[2019-10-03] MEDS ORDERED: Sodium Chloride 0.9% 1,000 ML IV SCH (14:45)
[2019-10-03] MEDS ORDERED: Ondansetron 4 MG/2 ML SDV IVPUSH ONE (15:01)
[2019-10-03] MEDS ORDERED: Diatrizoate Meglumine/Diatrizoate Sodium 37% 120 ML Bottle PO ONE (15:44)
[2019-10-03] MEDS ORDERED: Iopamidol 612 MG/ML 100 ML Bottle IVPUSH ONE (15:44)
[2019-10-03] MEDS ORDERED: Sodium Chloride 0.9% 10 ML Syringe FLUSH PRN (16:17)
--- NOTE | 2019-10-03 16:45 | CT ---
CT abdomen and pelvis Technique: Multiple axial sections were obtained from above the dome of the diaphragm inferiorly through the pubic symphysis. Intravenous and oral contrast was utilized. Delayed images also were obtained through the bladder. Findings: Visualized lung bases show nothing acute. Liver shows a small low density finding posteriorly next to the intrahepatic portion of the inferior vena cava. This measures about 8 mm. This is too small to accurately characterize by Hounsfield unit measurements. 2nd lesion is seen anteriorly within the right lobe of the liver measuring 3 mm which is also too small to characterize by Hounsfield unit measurements. Given the patient's age and no additional findings, findings most likely due to small benign lesions. Spleen appears normal. Adrenal glands show no abnormality. Pancreas is within normal limits. Gallbladder contains no calcified gallstones. Kidneys show symmetric contrast enhancement without hydronephrosis or mass. Aorta shows no aneurysm. No retroperitoneal adenopathy or mesenteric abnormalities are seen. Appendix is enlarged and shows mild surrounding inflammatory change. Findings are felt compatible with appendicitis. Probable appendicolith is noted near the base of the appendix. Small amount of free fluid is noted within the pelvis which is most likely physiologic. Delayed images shows contrast within the distal ureters and within the bladder. Bone window settings were reviewed which appear within normal limits for the patient's age. Impression: 1. Findings as described above which are felt compatible with appendicitis. 2. 2 small liver lesions which are believed to be incidental. 3. No additional abnormality is appreciated on CT study of the abdomen and pelvis. Diagnostic code #5 This report was dictated in [place] Standard Time
[2019-10-03] MEDS ORDERED: HYDROmorphone 0.5 MG/0.5 ML Syringe IVPUSH ONE (17:06)
[2019-10-03] MEDS ORDERED: Piperacillin/Tazobactam 4.5 GM in Sodium Chloride 0.9% 100 ML IV STA (17:36)
[2019-10-03] MEDS: Lactated Ringers 1,000 ML IV SCH ×2 (17:54→20:25)
--- NOTE | 2019-10-03 18:12 | PCM.HP.2 ---
H&P History of Present Illness - General Date of Service: 10/03/19 Source of Information: Patient History Limitations: Reports: No Limitations - History of Present Illness Initial Comments - Free Text/Narative: Developed new lower abdominal pain, cramping at midnight, and through the day has had worsening abdominal pain and frequent vomiting. Workup in the emergency room includes a CT scan of the abdomen showing signs of appendicitis with appendicolith. Onset of Symptoms: Reports: Today Duration of Symptoms: Reports: Hour(s):, Getting Worse Location: Reports: Abdomen Severity: Severe Worsens with: Reports: Movement Associated Symptoms: Reports: Nausea/Vomiting Abdominal Pain Score (Numeric/FACES): 6 - Related Data Allergies/Adverse Reactions: Allergies Allergy/AdvReac Type Severity Reaction Status Date / Time No Known Allergies Allergy Verified 10/03/19 14:16 Home Medications: Home Meds Supplements. 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 - Past Surgical History HEENT Surgical History: Reports: Myringotomy w Tube(s) (bilateral), Oral Surgery (wisdom teeth extraction) Female Surgical History: Reports: Section (x 2) Social & Family History - Family History Family Medical History: Noncontributory - Tobacco Use Smoking Status *Q: Never Smoker - Recreational Drug Use Recreational Drug Use: No - Living Situation & Occupation Living situation: Reports: , with Spouse, with Family (2 kids) Occupation: Unemployed H&P Review of Systems - Review of Systems: Review Of Systems: See Below General: Reports: No Symptoms HEENT: Reports: No Symptoms Pulmonary: Reports: No Symptoms Cardiovascular: Reports: No Symptoms Gastrointestinal: Reports: Abdominal Pain, Anorexia, Diarrhea, Nausea, Vomiting Genitourinary: Reports: No Symptoms Musculoskeletal: Reports: No Symptoms Skin: Reports: No Symptoms Psychiatric: Reports: No Symptoms Neurological: Reports: No Symptoms Hematologic/Lymphatic: Reports: No Symptoms Immunologic: Reports: No Symptoms Exam - Exam Exam: See Below - Vital Signs Vital Signs: Last Vital Signs Temp 36.2 C 10/03/19 14:17 Pulse 77 10/03/19 14:17 Resp 16 10/03/19 14:17 BP 120/81 10/03/19 14:17 Pulse Ox 100 10/03/19 14:17 Weight: 59.874 kg - Exam General: Alert, Oriented, Cooperative HEENT: Conjunctiva Clear Neck: Supple Lungs: Clear to Auscultation Cardiovascular: Regular Rate GI/Abdominal Exam: Soft, No Mass, Tender (Female) Exam: Deferred Rectal (Female) Exam: Deferred Back Exam: Full Range of Motion Extremities: Normal Inspection Peripheral Pulses: 2+: Radial (L), Radial (R) Skin: Warm, Dry Neuro Extensive - Mental Status: Alert, Oriented x3 Psychiatric: Alert - Patient Data Lab Results Last 24 hrs: Laboratory Results - last 24 hr 10/03/19 10/03/19 10/03/19 Range/Units 15:11 15:11 15:46 WBC 10.55 H (3.98-10.04) K/mm3 RBC 5.63 H (3.98-5.22) M/mm3 Hgb 16.0 H (11.2-15.7) gm/dl Hct 46.4 H (34.1-44.9) % MCV 82.4 (79.4-94.8) fl MCH 28.4 (25.6-32.2) pg MCHC 34.5 (32.2-35.5) g/dl RDW Std Deviation 39.4 (36.4-46.3) fL Plt Count 249 (182-369) K/mm3 MPV 9.7 (9.4-12.3) fl Neutrophils % (Manual) 91 H (40-60) % Band Neutrophils % 0 (0-10) % Lymphocytes % (Manual) 8 L (20-40) % Atypical Lymphs % 0 % Monocytes % (Manual) 1 L (2-10) % Eosinophils % (Manual) 0 L (0.7-5.8) % Basophils % (Manual) 0 L (0.1-1.2) Platelet Estimate Adequate Plt Morphology Comment Normal RBC Morph Comment Normal Sodium 139 (136-145) mEq/L Potassium 3.4 L (3.5-5.1) mEq/L Chloride 100 (98-107) mEq/L Carbon Dioxide 25 (21-32) mEq/L Anion Gap 17.4 H (5-15) BUN 8 (7-18) mg/dL Creatinine 0.8 (0.55-1.02) mg/dL Est Cr Clr Drug Dosing 90.84 mL/min Estimated GFR (MDRD) > 60 (>60) mL/min BUN/Creatinine Ratio 10.0 L (14-18) Glucose 119 H (74-106) mg/dL Calcium 9.2 (8.5-10.1) mg/dL Total Bilirubin 0.6 (0.2-1.0) mg/dL AST 12 L (15-37) U/L ALT 21 (14-59) U/L Alkaline Phosphatase 57 (46-116) U/L Total Protein 8.1 (6.4-8.2) g/dl Albumin 4.7 (3.4-5.0) g/dl Globulin 3.4 gm/dL Albumin/Globulin Ratio 1.4 (1-2) Urine Color Yellow (Yellow) Urine Appearance Clear (Clear) Urine pH 7.0 (5.0-8.0) Ur Specific [place] 1.025 (1.005-1.030) Urine Protein Trace H (Negative) Urine Glucose (UA) Negative (Negative) Urine Ketones 2+ H (Negative) Urine Occult Blood Negative (Negative) Urine Nitrite Negative (Negative) Urine Bilirubin Negative (Negative) Urine Urobilinogen 0.2 (0.2-1.0) Ur Leukocyte Esterase Negative (Negative) Urine RBC 0-5 (0-5) /hpf Urine WBC Not seen (0-5) /hpf Ur Squamous Epith Cells 0-5 (0-5) /hpf Urine Bacteria Not seen (FEW) /hpf Urine Mucus Few (FEW) /hpf Urine HCG, Qual (NEGATIVE) 10/03/19 Range/Units 15:46 WBC (3.98-10.04) K/mm3 RBC (3.98-5.22) M/mm3 Hgb (11.2-15.7) gm/dl Hct (34.1-44.9) % MCV (79.4-94.8) fl MCH (25.6-32.2) pg MCHC (32.2-35.5) g/dl RDW Std Deviation (36.4-46.3) fL Plt Count (182-369) K/mm3 MPV (9.4-12.3) fl Neutrophils % (Manual) (40-60) % Band Neutrophils % (0-10) % Lymphocytes % (Manual) (20-40) % Atypical Lymphs % % Monocytes % (Manual) (2-10) % Eosinophils % (Manual) (0.7-5.8) % Basophils % (Manual) (0.1-1.2) Platelet Estimate Plt Morphology Comment RBC Morph Comment Sodium (136-145) mEq/L Potassium (3.5-5.1) mEq/L Chloride (98-107) mEq/L Carbon Dioxide (21-32) mEq/L Anion Gap (5-15) BUN (7-18) mg/dL Creatinine (0.55-1.02) mg/dL Est Cr Clr Drug Dosing mL/min Estimated GFR (MDRD) (>60) mL/min BUN/Creatinine Ratio (14-18) Glucose (74-106) mg/dL Calcium (8.5-10.1) mg/dL Total Bilirubin (0.2-1.0) mg/dL AST (15-37) U/L ALT (14-59) U/L Alkaline Phosphatase (46-116) U/L Total Protein (6.4-8.2) g/dl Albumin (3.4-5.0) g/dl Globulin gm/dL Albumin/Globulin Ratio (1-2) Urine Color (Yellow) Urine Appearance (Clear) Urine pH (5.0-8.0) Ur Specific [place] (1.005-1.030) Urine Protein (Negative) Urine Glucose (UA) (Negative) Urine Ketones (Negative) Urine Occult Blood (Negative) Urine Nitrite (Negative) Urine Bilirubin (Negative) Urine Urobilinogen (0.2-1.0) Ur Leukocyte Esterase (Negative) Urine RBC (0-5) /hpf Urine WBC (0-5) /hpf Ur Squamous Epith Cells (0-5) /hpf Urine Bacteria (FEW) /hpf Urine Mucus (FEW) /hpf Urine HCG, Qual Negative (NEGATIVE) Result Diagrams: 10/03/19 15:11 10/03/19 15:11 Sepsis Event Note - Evaluation Sepsis Screening Result: No Definite Risk - Focused Exam Vital Signs: Vital Signs Temp Pulse Resp BP Pulse Ox 10/03/19 14:17 36.2 C 77 16 120/81 100 Date Exam was Performed: 10/03/19 Time Exam was Performed: 18:07 *Q Meaningful Use (ADM) - VTE Risk Assess *Q Each Risk Factor Represents 1 Point: None Total Score 1 Point Risk Factors: 0 Problem List Initiated/Reviewed/Updated: Yes Orders Last 24hrs: Active Orders 24 hr Category Date Time Status Urinary Catheter Assessment [RC] ASDIRECTED Care 10/03/19 15:53 Active Urinary Catheter Insertion [Insert Urinary Catheter] [ Care 10/03/19 16:00 Ordered OM.PC] Q24H Lactated Ringers [Ringers, Lactated] 1,000 ml Med 10/03/19 17:45 Active IV ASDIRECTED Piperacillin/Tazobactam [Piperacil-Tazobact] 4.5 gm Med 10/03/19 17:36 Active Sodium Chloride 0.9% [Normal Saline] 100 ml IV ONETIME Sodium Chloride 0.9% [Normal Saline] 1,000 ml Med 10/03/19 14:45 Active IV ASDIRECTED Schedule Procedure [COMM] Routine Oth 10/03/19 18:06 Ordered Medication Orders Sodium Chloride (Normal Saline) 1,000 mls @ 150 mls/hr IV [facility]ED [facility] Last Admin: 10/03/19 15:22 Dose: 150 mls/hr Piperacillin Sod/Tazobactam (Sod 4.5 gm/ Sodium Chloride) 100 mls @ 25 mls/hr IV ONETIME STA Stop: 10/03/19 21:35 Last Admin: 10/03/19 17:54 Dose: 25 mls/hr Lactated Ringer's (Ringers, Lactated) 1,000 mls @ 100 mls/hr IV [facility]ED [facility] Last Admin: 10/03/19 17:54 Dose: 100 mls/hr Assessment/Plan Comment:: Acute appendicitis, plan for laparoscopic appendectomy. - Mortality Measure Prognosis:: Good
[2019-10-03] MEDS ORDERED: Bupivacaine 0.5%/EPINEPHrine 1:200,000 50 ML MDV ONE (18:37)
[2019-10-03] MEDS ORDERED: Ondansetron 4 MG/2 ML SDV ONE (18:49)
[2019-10-03] MEDS ORDERED: Dexamethasone 4 MG/ML 5 ML MDV ONE (18:49)
[2019-10-03] MEDS ORDERED: Rocuronium 100 MG/10 ML MDV ONE (18:49)
[2019-10-03] MEDS ORDERED: Lidocaine 1% 4 ML ONE (18:50)
[2019-10-03] MEDS ORDERED: Propofol 200 MG/20 ML SDV ONE (18:50)
[2019-10-03] MEDS ORDERED: fentaNYL 100 MCG/2 ML SDV ONE ×2 (18:50→19:20)
[2019-10-03] MEDS ORDERED: ePHEDrine/Normal Saline 25 MG/5 ML Syringe ONE (19:13)
--- NOTE | 2019-10-03 19:16 | PCM.PREANE ---
Preanesthetic Assessment - Anesthesia/Transfusion/Family Hx Anesthesia History: Prior Anesthesia Without Reaction Family History of Anesthesia Reaction: No Transfusion History: No Prior Transfusion(s) Additional History: No previous problems with anesthesia or with intubation per patient - Review of Systems General: No Symptoms Pulmonary: No Symptoms Cardiovascular: No Symptoms Gastrointestinal: No Symptoms Neurological: No Symptoms Other: Reports: None - Physical Assessment NPO Status Date: 10/02/19 NPO Status Time: 22:30 Vital Signs: Last Vital Signs Temp 36.2 C 10/03/19 14:17 Pulse 77 10/03/19 14:17 Resp 16 10/03/19 14:17 BP 120/81 10/03/19 14:17 Pulse Ox 100 10/03/19 14:17 Height: 5 ft 5 in Weight: 59.874 kg ASA Class: 1E Mental Status: Alert & Oriented x3 Airway Class: Mallampati = 2 Dentition: Reports: Normal Dentition Thyro-Mental Finger Breadths: 3 Mouth Opening Finger Breadths: 3 ROM/Head Extension: Full Lungs: Clear to Auscultation, Normal Respiratory Effort Cardiovascular: Regular Rate, Regular Rhythm - Lab Values: Laboratory Last Values WBC 10.55 K/mm3 (3.98-10.04) H 10/03/19 15:11 RBC 5.63 M/mm3 (3.98-5.22) H 10/03/19 15:11 Hgb 16.0 gm/dl (11.2-15.7) H 10/03/19 15:11 Hct 46.4 % (34.1-44.9) H 10/03/19 15:11 MCV 82.4 fl (79.4-94.8) 10/03/19 15:11 MCH 28.4 pg (25.6-32.2) 10/03/19 15:11 MCHC 34.5 g/dl (32.2-35.5) 10/03/19 15:11 RDW Std Deviation 39.4 fL (36.4-46.3) 10/03/19 15:11 Plt Count 249 K/mm3 (182-369) 10/03/19 15:11 MPV 9.7 fl (9.4-12.3) 10/03/19 15:11 Neutrophils % (Manual) 91 % (40-60) H 10/03/19 15:11 Band Neutrophils % 0 % (0-10) 10/03/19 15:11 Lymphocytes % (Manual) 8 % (20-40) L 10/03/19 15:11 Atypical Lymphs % 0 % 10/03/19 15:11 Monocytes % (Manual) 1 % (2-10) L 10/03/19 15:11 Eosinophils % (Manual) 0 % (0.7-5.8) L 10/03/19 15:11 Basophils % (Manual) 0 (0.1-1.2) L 10/03/19 15:11 Platelet Estimate Adequate 10/03/19 15:11 Plt Morphology Comment Normal 10/03/19 15:11 RBC Morph Comment Normal 10/03/19 15:11 Sodium 139 mEq/L (136-145) 10/03/19 15:11 Potassium 3.4 mEq/L (3.5-5.1) L 10/03/19 15:11 Chloride 100 mEq/L (98-107) 10/03/19 15:11 Carbon Dioxide 25 mEq/L (21-32) 10/03/19 15:11 Anion Gap 17.4 (5-15) H 10/03/19 15:11 BUN 8 mg/dL (7-18) 10/03/19 15:11 Creatinine 0.8 mg/dL (0.55-1.02) 10/03/19 15:11 Est Cr Clr Drug Dosing 90.84 mL/min 10/03/19 15:11 Estimated GFR (MDRD) > 60 mL/min (>60) 10/03/19 15:11 BUN/Creatinine Ratio 10.0 (14-18) L 10/03/19 15:11 Glucose 119 mg/dL (74-106) H 10/03/19 15:11 Calcium 9.2 mg/dL (8.5-10.1) 10/03/19 15:11 Total Bilirubin 0.6 mg/dL (0.2-1.0) 10/03/19 15:11 AST 12 U/L (15-37) L 10/03/19 15:11 ALT 21 U/L (14-59) 10/03/19 15:11 Alkaline Phosphatase 57 U/L (46-116) 10/03/19 15:11 Total Protein 8.1 g/dl (6.4-8.2) 10/03/19 15:11 Albumin 4.7 g/dl (3.4-5.0) 10/03/19 15:11 Globulin 3.4 gm/dL 10/03/19 15:11 Albumin/Globulin Ratio 1.4 (1-2) 10/03/19 15:11 Urine Color Yellow (Yellow) 10/03/19 15:46 Urine Appearance Clear (Clear) 10/03/19 15:46 Urine pH 7.0 (5.0-8.0) 10/03/19 15:46 Ur Specific [place] 1.025 (1.005-1.030) 10/03/19 15:46 Urine Protein Trace (Negative) H 10/03/19 15:46 Urine Glucose (UA) Negative (Negative) 10/03/19 15:46 Urine Ketones 2+ (Negative) H 10/03/19 15:46 Urine Occult Blood Negative (Negative) 10/03/19 15:46 Urine Nitrite Negative (Negative) 10/03/19 15:46 Urine Bilirubin Negative (Negative) 10/03/19 15:46 Urine Urobilinogen 0.2 (0.2-1.0) 10/03/19 15:46 Ur Leukocyte Esterase Negative (Negative) 10/03/19 15:46 Urine RBC 0-5 /hpf (0-5) 10/03/19 15:46 Urine WBC Not seen /hpf (0-5) 10/03/19 15:46 Ur Squamous Epith Cells 0-5 /hpf (0-5) 10/03/19 15:46 Urine Bacteria Not seen /hpf (FEW) 10/03/19 15:46 Urine Mucus Few /hpf (FEW) 10/03/19 15:46 Urine HCG, Qual Negative (NEGATIVE) 10/03/19 15:46 - Imaging/EKG Impressions: ASA 1E - Allergies Allergies/Adverse Reactions: Allergies Allergy/AdvReac Type Severity Reaction Status Date / Time No Known Allergies Allergy Verified 10/03/19 14:16 PreAnesthesia Questionnaire - Past Health History Medical/Surgical History: Denies Medical/Surgical History 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 10/03/19 [History] - CURRENT (IN HOUSE) MEDS Current Meds: Current Medications Sodium Chloride (Normal Saline) 1,000 mls @ 150 mls/hr IV ASDIRECTED [facility] Last Admin: 10/03/19 15:22 Dose: 150 mls/hr Piperacillin Sod/Tazobactam (Sod 4.5 gm/ Sodium Chloride) 100 mls @ 25 mls/hr IV ONETIME STA Stop: 10/03/19 21:35 Last Admin: 10/03/19 17:54 Dose: 25 mls/hr Lactated Ringer's (Ringers, Lactated) 1,000 mls @ 100 mls/hr IV ASDIRECTED [facility] Last Admin: 10/03/19 17:54 Dose: 100 mls/hr Discontinued Medications Bupivacaine HCl/Epinephrine Bitart (Marcaine 0.5%/Epinephrine 1:200,000) Confirm Administered Dose 50 ml .ROUTE .STK-MED ONE Stop: 10/03/19 18:38 Dexamethasone (Dexamethasone) Confirm Administered Dose 20 mg .ROUTE .STK-MED ONE Stop: 10/03/19 18:50 Diatrizoate Meglum/Diatrizoate Sod (Gastrografin 37%) 90 ml PO ONETIME ONE Stop: 10/03/19 15:45 Last Admin: 10/03/19 16:15 Dose: 90 ml Fentanyl (Sublimaze) Confirm Administered Dose 100 mcg .ROUTE .STK-MED ONE Stop: 10/03/19 18:51 Hydromorphone HCl (Dilaudid) 0.5 mg IVPUSH ONETIME ONE Stop: 10/03/19 17:07 Last Admin: 10/03/19 17:11 Dose: 0.5 mg Lidocaine HCl (Xylocaine-Mpf 1%) Confirm Administered Dose 4 mls @ as directed .ROUTE .STK-MED ONE Stop: 10/03/19 18:51 Iopamidol (Isovue-300 (61%)) 100 ml IVPUSH ONETIME ONE Stop: 10/03/19 15:45 Last Admin: 10/03/19 16:15 Dose: 100 ml Ondansetron HCl (Zofran) 4 mg IVPUSH ONETIME ONE Stop: 10/03/19 15:02 Last Admin: 10/03/19 15:21 Dose: 4 mg Ondansetron HCl (Zofran) Confirm Administered Dose 4 mg .ROUTE .STK-MED ONE Stop: 10/03/19 18:50 Propofol (Diprivan 20 Ml) Confirm Administered Dose 200 mg .ROUTE .STK-MED ONE Stop: 10/03/19 18:51 Rocuronium [place] (Zemuron) Confirm Administered Dose 100 mg .ROUTE .STK-MED ONE Stop: 10/03/19 18:50 Sodium Chloride (Saline Flush) 10 ml FLUSH ONETIME PRN PRN Reason: Keep Vein Open Last Admin: 10/03/19 16:18 Dose: 10 ml
[2019-10-03] MEDS ORDERED: Ketorolac 30 MG/ML SDV ONE (19:30)
[2019-10-03] MEDS ORDERED: oxyCODONE 5 MG Tab PO PRN (19:44)
[2019-10-03] MEDS ORDERED: Ondansetron 4 MG Tab.DIS PO PRN (19:46)
[2019-10-03] MEDS ORDERED: Ondansetron 4 MG/2 ML SDV IVPUSH PRN (19:48)
[2019-10-03] MEDS ORDERED: HYDROmorphone 0.5 MG/0.5 ML Syringe IVPUSH PRN (19:48)
[2019-10-03] MEDS ORDERED: fentaNYL 100 MCG/2 ML SDV IVPUSH PRN (19:48)
[2019-10-03] MEDS ORDERED: Meperidine 50 MG/ML Vial IVPUSH ONE (19:49)
--- NOTE | 2019-10-03 19:49 | PCM.PRNOTE ---
- Free Text/Narrative Note: Operative Report Operation: laparoscopic appendectomy Date: 10/03/2019 Attending Surgeon: David Almaraz MD Indication for Surgery: acute appendicitis Preoperative antibiotics: 4.5 g zosyn IV VTE prophylaxis: SCDs Estimated Blood Loss: 5 cc Findings: gangrenous appendix without perforation Detailed Report: The patient underwent general endotracheal anesthesia after being placed supine on the operating table and initial timeout. The left arm was tucked at the patients side. The abdomen was prepped and draped in sterile fashion. A pre- incision timeout was performed confirming the patients identity and the operation to be performed. A Veress needle was inserted into the abdominal cavity below the left costal margin along the mid-clavicular line. The abdomen was insufflated with CO2 to 15 mm Hg. Gas was aspirated below the umbilicus with a syringe in order to ensure safe placement of a 12 mm bladed laparoscopic port. The 5mm 30 degree laparoscope was then inserted and viscera inspected. The appendix appeared grangrenous without perforation. Two additional 5 mm ports were placed under direct vision with the laparoscope one along the midline superior to the pubic symphysis and one in the left lower quadrant. The laparoscope was then placed through the left lower quadrant port for optimal visualization. Careful blunt dissection was performed with laparoscopic graspers until the appendix was freed from surrounding inflammatory attachments. The distal portion of the appendix was grasped with a laparoscopic Gail clamp and retracted anteriorly and inferiorly. The [place] grasper was used to create a window in the mesoappendix where the appendix was seen coming off the cecum. A 45 mm laparoscopic stapler with white cartridge was used to divide the appendix flush with the base of the cecum. The [place] Ligasure was used to divide the mesentery supplying the appendix. The specimen was then placed in an Endocatch bag and removed through the umbilical port. The dissection field was irrigated and inspected and appeared hemostatic. The larger infraumbilical port was closed at the level of the fascia with vicryl suture using the PMI laparoscopic suture passer. Pneumoperitoneum was then released. All skin incisions were then closed with placement of subcuticular vicryl suture and dressed with dermabond. A total of 20 cc 0.5 % marcaine with epinephrine was used for local anesthesia at the incision sites. The patient tolerated the operation well, was extubated in the operating room and transferred to the PACU for routine post-anesthesia care. David Almaraz MD General Surgery
--- NOTE | 2019-10-03 19:52 | PCM.POSTAN ---
POST ANESTHESIA ASSESSMENT - MENTAL STATUS Mental Status: Alert, Oriented - VITAL SIGNS Vital Signs: Last Vital Signs Temp 36.2 C 10/03/19 14:17 Pulse 77 10/03/19 14:17 Resp 16 10/03/19 14:17 BP 120/81 10/03/19 14:17 Pulse Ox 100 10/03/19 14:17 - RESPIRATORY Respiratory Status: Respiratory Rate WNL, Airway Patent, O2 Saturation Stable - CARDIOVASCULAR CV Status: Pulse Rate WNL, Blood Pressure Stable - GASTROINTESTINAL GI Status: No Symptoms - PAIN Pain Score: 0 - POST OP HYDRATION Hydration Status: Adequate & Stable - OBSERVATIONS Free Text/Narrative:: Routine transfer to PACU with handoff to RN. VSS, SV, GRADY, FAC, CTAB, 0/10. No concerns at this time.
--- NOTE | 2019-10-03 20:17 | PCM48HPAN ---
Post Anesthesia Note - EVALUATION WITHIN 48HRS OF ANESTHETIC Vital Signs in Normal Range: Yes Patient Participated in Evaluation: Yes Respiratory Function Stable: Yes Airway Patent: Yes Cardiovascular Function Stable: Yes Hydration Status Stable: Yes Pain Control Satisfactory: Yes Nausea and Vomiting Control Satisfactory: Yes Mental Status Recovered: Yes Vital Signs: Last Vital Signs Temp 37.2 C 10/03/19 19:43 Pulse 77 10/03/19 14:17 Resp 18 10/03/19 20:10 BP 104/59 L 10/03/19 20:10 Pulse Ox 95 10/03/19 20:10 - COMMENTS/OBSERVATIONS Free Text/Narrative:: No concerns at this time. Routine recovery.
[2019-10-03] MEDS: Acetaminophen 325 MG Tab PO SCH (22:24)
[2019-10-04] MEDS: Acetaminophen 325 MG Tab PO SCH (04:09)
[2019-10-04 05:40] VITALS: BP 90/56; PULSE 67
--- NOTE | 2019-10-04 08:22 | PCM.DCSUM1 ---
Discharge Summary - Hospital Course Free Text/Narrative:: Admitted from ER with abdominal pain and CT scan confirming acute appendicitis- went to OR for laparoscopic appendectomy which went well, the patient stayed overnight given that she presented so late in the day. She met discharge criteria the morning following her operation. - Discharge Data Discharge Date: 10/04/19 Discharge Disposition: Home, Self-Care 01 Condition: Good - Referral to Home Health Primary Care Physician: PCP None - Patient Instructions Diet: Regular Diet as Tolerated Activity: No Lifting Over 10 Pounds Showering/Bathing: May Shower Wound/Incision Care: Keep Operative Site/Wound Site Clean and Dry Notify Provider of: Fever, Increased Pain, Swelling and Redness, Drainage, Nausea and/or Vomiting - Discharge Plan *PRESCRIPTION DRUG MONITORING PROGRAM REVIEWED*: Not Applicable *COPY OF PRESCRIPTION DRUG MONITORING REPORT IN PATIENT DERRICK: Not Applicable Prescriptions/Med Rec: oxyCODONE 5 mg PO Q4H PRN #10 tab PRN Reason: Pain Home Medications: Home Meds Supplements. 10/03/19 [History] oxyCODONE 5 mg PO Q4H PRN #10 tab 10/04/19 [Rx] Oxygen Therapy Mode: Room Air Patient Handouts: Laparoscopic Appendectomy, Adult, Care After, Appendicitis, Adult Forms: ED Department Discharge Referrals: Tony Tate MD [Physician] - David Almaraz MD [Physician] - - Discharge Summary/Plan Comment DC Time >30 min.: No - Patient Data Vitals - Most Recent: Last Vital Signs Temp 36.7 C 10/04/19 04:06 Pulse 67 10/04/19 04:06 Resp 17 10/04/19 04:06 BP 90/56 L 10/04/19 04:06 Pulse Ox 97 10/04/19 04:06 Weight - Most Recent: 59.874 kg I&O - Last 24 hours: Intake & Output 10/03/19 10/04/19 10/04/19 22:59 06:59 14:59 Intake Total 1060 1405 Balance 1060 1405 Lab Results - Last 24 hrs: Laboratory Results - last 24 hr 10/03/19 10/03/19 10/03/19 Range/Units 15:11 15:11 15:46 WBC 10.55 H (3.98-10.04) K/mm3 RBC 5.63 H (3.98-5.22) M/mm3 Hgb 16.0 H (11.2-15.7) gm/dl Hct 46.4 H (34.1-44.9) % MCV 82.4 (79.4-94.8) fl MCH 28.4 (25.6-32.2) pg MCHC 34.5 (32.2-35.5) g/dl RDW Std Deviation 39.4 (36.4-46.3) fL Plt Count 249 (182-369) K/mm3 MPV 9.7 (9.4-12.3) fl Neutrophils % (Manual) 91 H (40-60) % Band Neutrophils % 0 (0-10) % Lymphocytes % (Manual) 8 L (20-40) % Atypical Lymphs % 0 % Monocytes % (Manual) 1 L (2-10) % Eosinophils % (Manual) 0 L (0.7-5.8) % Basophils % (Manual) 0 L (0.1-1.2) Platelet Estimate Adequate Plt Morphology Comment Normal RBC Morph Comment Normal Sodium 139 (136-145) mEq/L Potassium 3.4 L (3.5-5.1) mEq/L Chloride 100 (98-107) mEq/L Carbon Dioxide 25 (21-32) mEq/L Anion Gap 17.4 H (5-15) BUN 8 (7-18) mg/dL Creatinine 0.8 (0.55-1.02) mg/dL Est Cr Clr Drug Dosing 90.84 mL/min Estimated GFR (MDRD) > 60 (>60) mL/min BUN/Creatinine Ratio 10.0 L (14-18) Glucose 119 H (74-106) mg/dL Calcium 9.2 (8.5-10.1) mg/dL Total Bilirubin 0.6 (0.2-1.0) mg/dL AST 12 L (15-37) U/L ALT 21 (14-59) U/L Alkaline Phosphatase 57 (46-116) U/L Total Protein 8.1 (6.4-8.2) g/dl Albumin 4.7 (3.4-5.0) g/dl Globulin 3.4 gm/dL Albumin/Globulin Ratio 1.4 (1-2) Urine Color Yellow (Yellow) Urine Appearance Clear (Clear) Urine pH 7.0 (5.0-8.0) Ur Specific Abbott 1.025 (1.005-1.030) Urine Protein Trace H (Negative) Urine Glucose (UA) Negative (Negative) Urine Ketones 2+ H (Negative) Urine Occult Blood Negative (Negative) Urine Nitrite Negative (Negative) Urine Bilirubin Negative (Negative) Urine Urobilinogen 0.2 (0.2-1.0) Ur Leukocyte Esterase Negative (Negative) Urine RBC 0-5 (0-5) /hpf Urine WBC Not seen (0-5) /hpf Ur Squamous Epith Cells 0-5 (0-5) /hpf Urine Bacteria Not seen (FEW) /hpf Urine Mucus Few (FEW) /hpf Urine HCG, Qual (NEGATIVE) 10/03/19 Range/Units 15:46 WBC (3.98-10.04) K/mm3 RBC (3.98-5.22) M/mm3 Hgb (11.2-15.7) gm/dl Hct (34.1-44.9) % MCV (79.4-94.8) fl MCH (25.6-32.2) pg MCHC (32.2-35.5) g/dl RDW Std Deviation (36.4-46.3) fL Plt Count (182-369) K/mm3 MPV (9.4-12.3) fl Neutrophils % (Manual) (40-60) % Band Neutrophils % (0-10) % Lymphocytes % (Manual) (20-40) % Atypical Lymphs % % Monocytes % (Manual) (2-10) % Eosinophils % (Manual) (0.7-5.8) % Basophils % (Manual) (0.1-1.2) Platelet Estimate Plt Morphology Comment RBC Morph Comment Sodium (136-145) mEq/L Potassium (3.5-5.1) mEq/L Chloride (98-107) mEq/L Carbon Dioxide (21-32) mEq/L Anion Gap (5-15) BUN (7-18) mg/dL Creatinine (0.55-1.02) mg/dL Est Cr Clr Drug Dosing mL/min Estimated GFR (MDRD) (>60) mL/min BUN/Creatinine Ratio (14-18) Glucose (74-106) mg/dL Calcium (8.5-10.1) mg/dL Total Bilirubin (0.2-1.0) mg/dL AST (15-37) U/L ALT (14-59) U/L Alkaline Phosphatase (46-116) U/L Total Protein (6.4-8.2) g/dl Albumin (3.4-5.0) g/dl Globulin gm/dL Albumin/Globulin Ratio (1-2) Urine Color (Yellow) Urine Appearance (Clear) Urine pH (5.0-8.0) Ur Specific Abbott (1.005-1.030) Urine Protein (Negative) Urine Glucose (UA) (Negative) Urine Ketones (Negative) Urine Occult Blood (Negative) Urine Nitrite (Negative) Urine Bilirubin (Negative) Urine Urobilinogen (0.2-1.0) Ur Leukocyte Esterase (Negative) Urine RBC (0-5) /hpf Urine WBC (0-5) /hpf Ur Squamous Epith Cells (0-5) /hpf Urine Bacteria (FEW) /hpf Urine Mucus (FEW) /hpf Urine HCG, Qual Negative (NEGATIVE) Med Orders - Current: Current Medications Acetaminophen (Tylenol) 975 mg PO Q8H JAVY Last Admin: 10/04/19 04:09 Dose: 975 mg Hydromorphone HCl (Dilaudid) 0.5 mg IVPUSH Q10M PRN PRN Reason: Pain (severe 7-10) Ondansetron HCl (Zofran Odt) 4 mg PO Q8H PRN PRN Reason: Nausea/Vomiting Ondansetron HCl (Zofran) 4 mg IVPUSH ONETIME PRN PRN Reason: Nausea/Vomiting Oxycodone HCl (Oxycodone) 5 mg PO Q4H PRN PRN Reason: Pain (moderate 4-6) Last Admin: 10/04/19 02:00 Dose: 5 mg Discontinued Medications Bupivacaine HCl/Epinephrine Bitart (Marcaine 0.5%/Epinephrine 1:200,000) Confirm Administered Dose 50 ml .ROUTE .STK-MED ONE Stop: 10/03/19 18:38 Last Admin: 10/03/19 19:18 Dose: 20 ml Dexamethasone (Dexamethasone) Confirm Administered Dose 20 mg .ROUTE .STK-MED ONE Stop: 10/03/19 18:50 Diatrizoate Meglum/Diatrizoate Sod (Gastrografin 37%) 90 ml PO ONETIME ONE Stop: 10/03/19 15:45 Last Admin: 10/03/19 16:15 Dose: 90 ml Ephedrine Sulfate (Ephedrine In Ns) Confirm Administered Dose 25 mg .ROUTE .[facility] ONE Stop: 10/03/19 19:14 Fentanyl (Sublimaze) Confirm Administered Dose 100 mcg .ROUTE .[facility] ONE Stop: 10/03/19 18:51 Fentanyl (Sublimaze) Confirm Administered Dose 100 mcg .ROUTE .[facility] ONE Stop: 10/03/19 19:21 Fentanyl (Sublimaze) 50 mcg IVPUSH Q5M PRN PRN Reason: Pain Hydromorphone HCl (Dilaudid) 0.5 mg IVPUSH ONETIME ONE Stop: 10/03/19 17:07 Last Admin: 10/03/19 17:11 Dose: 0.5 mg Sodium Chloride (Normal Saline) 1,000 mls @ 150 mls/hr IV ASDIRECTED [facility] Last Admin: 10/03/19 15:22 Dose: 150 mls/hr Piperacillin Sod/Tazobactam (Sod 4.5 gm/ Sodium Chloride) 100 mls @ 25 mls/hr IV ONETIME STA Stop: 10/03/19 21:35 Last Admin: 10/03/19 17:54 Dose: 25 mls/hr Lactated Ringer's (Ringers, Lactated) 1,000 mls @ 100 mls/hr IV ASDIRECTED [facility] Last Admin: 10/03/19 20:25 Dose: 100 mls/hr Lidocaine HCl (Xylocaine-Mpf 1%) Confirm Administered Dose 4 mls @ as directed .ROUTE .[facility] ONE Stop: 10/03/19 18:51 Iopamidol (Isovue-300 (61%)) 100 ml IVPUSH ONETIME ONE Stop: 10/03/19 15:45 Last Admin: 10/03/19 16:15 Dose: 100 ml Ketorolac Tromethamine (Toradol) Confirm Administered Dose 30 mg .ROUTE .[facility] ONE Stop: 10/03/19 19:31 Meperidine HCl (Meperidine) 25 mg IVPUSH ONETIME ONE Stop: 10/03/19 19:50 Last Admin: 10/03/19 23:21 Dose: Not Given Ondansetron HCl (Zofran) 4 mg IVPUSH ONETIME ONE Stop: 10/03/19 15:02 Last Admin: 10/03/19 15:21 Dose: 4 mg Ondansetron HCl (Zofran) Confirm Administered Dose 4 mg .ROUTE .STK-MED ONE Stop: 10/03/19 18:50 Propofol (Diprivan 20 Ml) Confirm Administered Dose 200 mg .ROUTE .STK-MED ONE Stop: 10/03/19 18:51 Rocuronium [place] (Zemuron) Confirm Administered Dose 100 mg .ROUTE .STK-MED ONE Stop: 10/03/19 18:50 Sodium Chloride (Saline Flush) 10 ml FLUSH ONETIME PRN PRN Reason: Keep Vein Open Last Admin: 10/03/19 16:18 Dose: 10 ml Sugammadex Sodium (Bridion) Confirm Administered Dose 500 mg .ROUTE .STK-MED ONE Stop: 10/03/19 19:29
--- NOTE | 2019-10-04 12:09 | PCM48HPAN ---
Post Anesthesia Note - EVALUATION WITHIN 48HRS OF ANESTHETIC Vital Signs in Normal Range: Yes Patient Participated in Evaluation: No (patient discharged prior to rounds) Respiratory Function Stable: Yes Airway Patent: Yes Cardiovascular Function Stable: Yes Hydration Status Stable: Yes Pain Control Satisfactory: Yes Nausea and Vomiting Control Satisfactory: Yes Mental Status Recovered: Yes Vital Signs: Last Vital Signs Temp 36.7 C 10/04/19 04:06 Pulse 67 10/04/19 04:06 Resp 17 10/04/19 04:06 BP 90/56 L 10/04/19 04:06 Pulse Ox 97 10/04/19 04:06 - COMMENTS/OBSERVATIONS Free Text/Narrative:: RN relayed that the patient did well. No concerns upon discharge.
== END 2019-10-04 10:42 | disposition home or self-care (01) ==
LOC: JD.ED 14:05 → JD.SDS 18:12 → JD.MS 19:00 → JD.SDS 10-04 10:42
PROVIDERS: ATTEND Surgery
DX: K35.31 Acute appendicitis with localized peritonitis and gangrene, without perforation (principal); K21.9 Gastro-esophageal reflux disease without esophagitis
CPT/HCPCS: 36415; 44970; 74177; 80053; 81001; 81025; 85007; 85027; A9270; J1100; J1170; J1885; J2001; J2405; J2543; J2704; J3010; J3490; J7030; J7050; J7120; Q9963; Q9967; 00840; 99285